=== PATIENT | male | born 1965 | race Caucasian/White ===

== ENCOUNTER 2017-08-14 07:58 | Inpatient (IN) | payer BC, OTHER ==
[~2017-08-14] VITALS: Ht 185.4 cm; Wt 90.7 kg
--- NOTE | ~2017-08-14 | HC ---
[facility] [place] [address] CONSULTATION Name: RHEA FAJARDO Room #: 440-P [facility] IN M.R.#: [id number] Admission: 08/14/17 Attend Phys: Cm Ramirez MD Discharge: Date of : 61 Report #: [id number] THIS REPORT FOR: //name// CC: Cm Portillo DATE OF SERVICE: 08/14/2017 REFERRING PROVIDER: Cm Ramirez MD REASON FOR CONSULT: Abdominal pain. HISTORY OF PRESENT ILLNESS: The patient is a 51-year-old male who presented with severe sudden onset epigastric to right upper quadrant abdominal pain that began after eating breakfast this morning. The patient states he has never had this sensation before and rated his pain as a 10/10. The patient had received morphine in the Emergency Room; however, that did not take the pain away, but brought it down to a 6/10 and he received a GI cocktail that had no effect as well. The patient therefore underwent workup for his epigastric pain in the form of laboratories and an ultrasound of the abdomen. The patient's labs were all within normal limits including all liver function enzymes and lipase which were normal. The patient received an ultrasound of the abdomen, which showed a normal gallbladder without calculi, wall thickening or pericholecystic fluid and no evidence of ductal dilatation. As the patient's pain is unrelenting, he is being admitted for pain control and further workup and I am asked to evaluate. PAST MEDICAL HISTORY: Hypercholesterolemia. HOME MEDICATIONS: None. ALLERGIES: No known drug allergies. FAMILY HISTORY: Reviewed and noncontributory. SOCIAL HISTORY: The patient does not utilize tobacco, alcohol or illicit drugs. REVIEW OF SYSTEMS: GENERAL: The patient denies nocturnal fevers or chills. HEENT: No change in vision, change in hearing. NECK: No swelling or difficulty swallowing. HEART: No chest pain, palpitations. LUNGS: No cough or shortness of breath. ABDOMEN: Abdominal pain, but no nausea or vomiting. GENITOURINARY: No dysuria or hematuria. ENDOCRINE: No polyuria, polydipsia. [facility] [address] [place] [address] CONSULTATION Name: RHEA FAJARDO Room #: 440-P [facility] IN M.R.#: [id number] Admission: 08/14/17 Attend Phys: Cm Ramirez MD Discharge: Date of : 61 Report #: [id number] HEMATOLOGIC: No history of bleeding or easy bruising. EXTREMITIES: No history weakness or limited range of motion. NEUROLOGIC: No history of syncope or near syncopal episodes. SKIN AND INTEGUMENT: No history of abnormal lesions or moles. PSYCHIATRIC: No history of anxiety or depression. PHYSICAL EXAMINATION: VITAL SIGNS: Temperature 98.5, pulse 64, respirations 16, blood pressure 140/84, he stands 5 feet 10 inches tall and weighs 180 pounds. GENERAL: Alert and oriented, in no acute distress. HEENT: Normocephalic, atraumatic. Pupils equal, round, reactive to light. NECK: Supple without lymphadenopathy. Trachea midline. HEART: Regular rate and rhythm. LUNGS: Clear to auscultation bilaterally. ABDOMEN: Soft, nondistended. He is minimally tender to deep palpation in the epigastrium to right upper quadrant, but has no guarding, no rebound, no peritoneal signs or symptoms. GENITOURINARY: Normal external male genitalia. EXTREMITIES: No clubbing, cyanosis or edema. NEUROLOGIC: Cranial nerves 2-12 are grossly intact. PSYCHIATRIC: Normal mood and affect. SKIN AND INTEGUMENT: No abnormal lesions or moles. LABORATORY AND X-RAY DATA: CBC shows white blood cell count of 6.5 thousand, hemoglobin 14.9, platelets 212,000. Creatinine is 1.1. Liver function enzymes are all normal as is his lipase. Urinalysis is negative. Lactic acid 1.3, which is normal. Ultrasound of the abdomen shows a normal gallbladder without calculi, wall thickening or pericholecystic fluid and no evidence of ductal dilatation. He has a negative sonographic Gaines sign as well. ASSESSMENT AND PLAN: A 51-year-old male with epigastric pain with a negative workup thus far from a biliary source. It is possible the patient does have biliary dyskinesia or even early acute acalculous cholecystitis, but it is also quite likely that he has gastritis or even possibly peptic ulcer disease. Nonetheless, the patient has been admitted by the hospitalist and we will initiate continuing workup with a PIPIDA scan to fully evaluate his biliary tree. If he should have reproduction of symptoms upon injection of cholecystokinin or have a decreased ejection fraction, he would likely necessitate laparoscopic cholecystectomy for definitive surgical management. If his PIPIDA turns out normal with no reproduction of symptoms, we will likely ask Gastroenterology to assist in evaluation as he may necessitate upper endoscopy to rule out peptic ulcer disease. [facility] [address] [place] [address] CONSULTATION Name: RHEA FAJARDO Room #: 440-P AD[facility] IN M.R.#: [id number] Admission: 08/14/17 Attend Phys: Cm Ramirez MD Discharge: Date of : 61 Report #: [id number] I sincerely appreciate this consult. I will follow closely and leave any further recommendations in the patient's chart as appropriate. <ELECTRONICALLY SIGNED> By: Solange Sullivan MD, FACS 08/15/17 [id number] Solange Sullivan MD, FACS /nt
--- NOTE | ~2017-08-14 | EKG ---
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 : 1965 Requested By: Jessica Golmdan Order Number: [id number] MD: Gurjit Jennings Measurements Intervals [place] Rate: 70 P: 54 RI: 158 QRS: 49 QRSD: 96 T: 47 QT: 406 QTc: 439 Interpretive Statements Sinus rhythm Low voltage, extremity leads Baseline wander in lead(s) V2 No previous ECG available for comparison Electronically Signed On 08-14-2017 8:15:25 LEATHER COVERER by Gurjit Jennings [email or web address] <ELECTRONICALLY SIGNED> By: Gurjit Jennings MD, [facility] 08/14/1715 7 7 Gurjit Jennings MD, FAC /EPI
[2017-08-14 08:21] LABS: ABSOLUTE NEUTROPHILS 4.5 thou/uL (1.4-8.2); BASOPHILS 0.6 % (0.0-2.0); HEMATOCRIT 43.9 % (42.0-52.0); HEMOGLOBIN 14.9 gm/dL (14.0-18.0); LYMPHOCYTES 19.2 % (24.0-44.0); MCH 30.3 pg (26.0-34.0); MCHC 33.9 g/dL (28.0-37.0); MCV 89.3 fL (80.0-100.0); MONOCYTES 8.7 % (1.0-8.0); PLATELET COUNT 212 thou/uL (150-400); POLYS 69.5 % (36.0-66.0); RBC 4.92 mil/uL (4.50-6.00); RDW 13.5 % (10.5-14.5); WBC 6.5 thou/uL (4.0-11.0)
[2017-08-14 08:25] VITALS: BP 142/85
[2017-08-14 08:29] LABS: ANION GAP 8 mmol/L (7-16); BUN 13 mg/dL (7-18); CALCIUM 9.1 mg/dL (8.5-10.1); CHLORIDE 105 mmol/L (98-107); CO2 27 mmol/L (21-32); CREATININE 1.1 mg/dL (0.7-1.3); GLUCOSE 114 mg/dL (74-106); POTASSIUM 3.9 mmol/L (3.5-5.1); SODIUM 140 mmol/L (136-145)
[2017-08-14 08:36] LABS: ALBUMIN 3.9 g/dL (3.4-5.0); DIRECT BILIRUBIN < 0.1 mg/dL (<0.1-0.3); LIPASE 114 U/L (73-393); SGOT 16 U/L (15-37); SGPT 26 U/L (30-65); TOTAL BILIRUBIN 0.5 mg/dL (<0.1-1.0); TOTAL PROTEIN 6.8 g/dL (6.4-8.2); TROPONIN-I < 0.04 ng/mL (<0.06)
[2017-08-14 08:50] LABS: URINE BILIRUBIN NEGATIVE (Negative); URINE BLOOD NEGATIVE (Negative); URINE CLARITY CLEAR; URINE COLOR YELLOW; URINE GLUCOSE-RANDOM* NEGATIVE (Negative); URINE KETONES NEGATIVE (Negative); URINE LEUKOCYTES NEGATIVE (Negative); URINE NITRITE NEGATIVE (Negative); URINE PROTEIN (DIPSTICK) NEGATIVE (Negative); URINE UROBILINOGEN 0.2 E.U./dl (0.2-1.0)
[2017-08-14 13:13] VITALS: BP 140/84
[2017-08-14 14:02] VITALS: BP 138/84
[2017-08-14 14:17] VITALS: BP 119/85
[2017-08-14] MEDS ORDERED: CHILDREN'S ASPI81 M1 PO (14:22)
[2017-08-14] MEDS ORDERED: ATORVASTATIN CA40 MG PO (14:41)
[2017-08-14 20:47] VITALS: BP 127/91
[2017-08-15 03:24] VITALS: BP 119/80
[2017-08-15 05:36] LABS: HEMATOCRIT 40.8 % (42.0-52.0); HEMOGLOBIN 13.7 gm/dL (14.0-18.0); MCH 30.3 pg (26.0-34.0); MCHC 33.6 g/dL (28.0-37.0); RBC 4.53 mil/uL (4.50-6.00); RDW 13.6 % (10.5-14.5); WBC 5.6 thou/uL (4.0-11.0)
[2017-08-15 05:53] LABS: ALBUMIN 3.1 g/dL (3.4-5.0); CALCIUM 8.5 mg/dL (8.5-10.1); TOTAL BILIRUBIN 0.7 mg/dL (<0.1-1.0); TOTAL PROTEIN 5.6 g/dL (6.4-8.2)
[2017-08-15 07:30] VITALS: BP 124/76
[2017-08-15] MEDS ORDERED: HYDROCODONE-AP1 EAC6 PO (14:55)
[2017-08-15] MEDS ORDERED: ZOFRAN ODT4 MG DISSOLVE (14:55)
[2017-08-15 15:09] VITALS: BP 124/76
== END 2017-08-15 15:29 | disposition home or self-care (01) | DRG 446 ==
LOC: ER 07:58 → EROBS 11:02 → 4S 11:02 → ENTRNSPT 08-15 15:27 → 4S 08-15 15:29 → EDTRNSPTSTS 08-15 15:32
PROVIDERS: Emergency Medicine; Surgery
DX: K82.8 Other specified diseases of gallbladder (principal); E78.00 Pure hypercholesterolemia, unspecified; K81.1 Chronic cholecystitis; E78.5 Hyperlipidemia, unspecified; Z79.82 Long term (current) use of aspirin; Z79.899 Other long term (current) drug therapy
CPT/HCPCS: 10102